=== PATIENT | female | born 1985 | race Two or more races ===

== ENCOUNTER 2017-03-07 20:49 | Emergency (ER) | payer MEDICAID ==
[~2017-03-07] VITALS: Ht 144.8 cm; Wt 77.1 kg
[~2017-03-07 20:49] MED LIST: FLUO20CA19; LAMICTAL
[2017-03-07 23:13] VITALS: BP 122/87
[2017-03-08] MEDS ORDERED: IBUPROFEN 600 MG TAB PO ONE (00:45)
[2017-03-08] MEDS ORDERED: CYCLOBENZAPRINE HCL 10 MG TAB PO ONE (00:45)
== END 2017-03-08 01:53 | disposition home or self-care (01) ==
LOC: ER 20:49
DX: S13.9XXA Sprain of joints and ligaments of unspecified parts of neck, initial encounter (principal); S00.83XA Contusion of other part of head, initial encounter; S30.0XXA Contusion of lower back and pelvis, initial encounter; S70.12XA Contusion of left thigh, initial encounter; R45.6 Violent behavior; Y04.8XXA Assault by other bodily force, initial encounter; Y93.89 Activity, other specified; Y99.8 Other external cause status; Y92.89 Other specified places as the place of occurrence of the external cause
CPT/HCPCS: 70450; 72125; 72131; 73560

== ENCOUNTER 2025-04-29 10:55 | Emergency (ER) | payer SELFPAY ==
[~2025-04-29] VITALS: Ht 144.8 cm; Wt 80.7 kg
[2025-04-29 11:19] VITALS: TEMP 98.6
[2025-04-29 11:38] VITALS: BP 112/61; PULSE 81; RESP 18; O2SAT 98
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
== END 2025-04-29 11:58 | disposition home or self-care (01) ==
LOC: ER 10:55
DX: Z04.2 Encounter for examination and observation following work accident (principal); F12.90 Cannabis use, unspecified, uncomplicated